=== PATIENT | male | born 1995 | race African-American/Black ===

== ENCOUNTER 2019-04-16 23:13 | Emergency (ER) | payer BC, SELFPAY ==
[2019-04-17 00:03] LABS: Prothrombin Time 13.1 SEC (12.0-14.7)
[2019-04-17 00:04] LABS: Hemoglobin 13.8 g/dL (14.0-18.0); Mean Corpuscular HGB CONC 33.4 g/dL (32.0-36.0); Mean Corpuscular Hemoglobin 33.4 pg (27.0-31.0); Mean Corpuscular Volume 99.9 fL (78.0-98.0); Mean Platelet Volume 6.5 fL (7.4-10.4); PTT 31.1 SEC (22.9-36.1); Platelet Count 267 thou/uL (130-400); RBC Distribution Width 11.7 % (11.5-14.5); Red Blood Cell (RBC) Count 4.13 mill/uL (4.70-6.10); White Blood Cell (WBC) Count 5.9 thou/uL (4.8-10.8)
[2019-04-17 00:13] LABS: ALT (SGPT) 26 U/L (8-55); AST (SGOT) 40 U/L (5-34); Albumin 4.3 g/dL (3.5-5.0); Alkaline Phosphatase 63 U/L (40-110); Anion Gap 15 mmol/L (10-20); BUN (Urea Nitrogen) 9 mg/dL (8.9-20.6); Bilirubin, Total 0.6 mg/dL (0.2-1.2); Calc. Creatinine Clearance 0 mL/min (70-130); Calcium 10.1 mg/dL (7.8-10.44); Carbon Dioxide 25 mmol/L (22-29); Chloride 106 mmol/L (98-107); Estimated GFR-MDRD Greater than 90; Globulin 2.9 g/dL (2.4-3.5); Glucose 83 mg/dL (70-105); Potassium 3.5 mmol/L (3.5-5.1); Protein, Total 7.2 g/dL (6.0-8.3); Sodium 142 mmol/L (136-145)
[2019-04-17 00:21] LABS: Eosinophils 1 % (0-10); Lymphocytes 55 % (21-51); MDiff Complete? YES; Monocytes 9 % (0-10); Neutrophil 33 % (42-75); Platelet Morphology Comment Appears Adequate; RBC Morphology Normal; Reactive Lymphocytes 2 % (0-10)
--- NOTE | 2019-04-17 11:16 | RAD ---
CHEST 2 VIEWS: Date: 04/16/19 The lungs seem slightly hyperexpanded; however, there was no lobar infiltrate to suggest pneumonia. T he lungs are clear. The heart is normal in size and mediastinum appears normal. IMPRESSION: No acute thoracic findings, other than perhaps slight hyperexpansion. POS: HOME
== END 2019-04-17 00:46 | disposition home or self-care (01) ==
LOC: BURERS 23:13
DX: J06.9 Acute upper respiratory infection, unspecified (principal); R04.2 Hemoptysis; F17.210 Nicotine dependence, cigarettes, uncomplicated
CPT/HCPCS: 36415; 71046; 80053; 85025; 85379; 85610; 85730